=== PATIENT | female | born 1955 | race Caucasian/White ===

== ENCOUNTER 2017-12-16 12:19 | Day surgery (SDC) | payer OTHER ==
[~2017-12-16] VITALS: Ht 167.6 cm; Wt 105.7 kg
[~2017-12-16 12:19] MED LIST: ABILIFY5 MG; ASPIRIN EC325 MG PO; CARBAMAZEPINE200 MG PO; DILANTIN100 MG PO; FLUOXETINE HCL20 MG PO; GABAPENTIN300 MG PO; LEVETIRACETAM500 MG PO; LOSARTAN POTAS100 MG PO; LYRICA150 MG PO; MELOXICAM15 MG PO; NORCO 5-325 TA1 EACH PO; OMEPRAZOLE20 MG PO; ONDANSETRON ODT4 MG SL; OSELTAMIVIR PHO75 MG PO; PHENYTOIN SODI100 MG PO; TIZANIDINE HCL2 M1 PO; VENTOLIN HFA18 GM INH
[2017-12-16] MEDS ORDERED: L-METHYLFOLATE7.5 M1 PO (12:49)
[2017-12-16] MEDS ORDERED: L-METHYL-B6-B11 EACH PO (12:52)
--- NOTE | 2017-12-16 14:15 | NUR ---
12/16/17 Josseline5 April Preston 1407 PT ARRIVED TO PACU ON 3L RESP EVEN AND UNLABORED. PT DENIES NAUSEA AND PAIN. PT ENCOURAGED TO PASS GAS/AIR. PT BACK TO SLEEP.
--- NOTE | 2017-12-21 13:08 | OR ---
[facility] [address], [place] [address] Signed DATE OF OPERATION: 12/16/2017 SURGEON: Magdalena Akins MD PREOPERATIVE DIAGNOSES: 1. History of Clostridium difficile related diarrhea. 2. Heme-positive stools. 3. Multiple polyps (seven). PROCEDURE: 1. Total colonoscopy to cecum with cold morcellation polypectomy x3, hot and cold snare polypectomy x4. 2. Random biopsy of cecum and rectum. ANESTHESIA: Intravenous sedation fentanyl 100 mcg, Versed 8 mg. INDICATION: This 62-year-old white woman is a patient of JAE Hernandez, and has history of C difficile related diarrhea, which was rather protracted. She appears to be resolved from that. She has been noted to have occult blood on stool testing. She was admitted to undergo colonoscopy on that basis. She understands the risks of bleeding, infection, and perforation and wished to proceed. FINDINGS: The prep was excellent. Complete colonoscopy was undertaken to the cecum without question. Biopsies were taken of the cecum and rectum to assess for occult colitis, though there was no evidence of colitis at this time. She had seven polyps in total. A small flat polyp in the ileocecal valve was another in the cecum itself. A more substantial polyp was of the hepatic flexure and another similarly on the splenic flexure, as well as the transverse colon. A polyp was noted at 40 cm and one in the rectum as well. They were all excised with combination of techniques. PROCEDURE: The patient was brought to the endoscopy suite and placed in lateral decubitus position, and given intravenous sedation to the point of slurred speech and nystagmus. Full cardiopulmonary monitoring was maintained. Digital rectal examination was normal. An Olympus video colonoscope was passed in the rectum and manipulated throughout the colon ultimately intubating the cecum itself. Irrigation was undertaken as needed. Electronically Signed By: MAGDALENA AKINS MD 12/21/17 1308 PATIENT NAME: CORINNA HOGAN OPERATIVE REPORT DATE OF : 57 REPORT #: [id number] PHYSICIAN: MAGDALENA AKINS MD PCP: NINA NICHOLAS PA-C REPORT IS CONFIDENTIAL AND NOT TO BE RELEASED WITHOUT AUTHORIZATION [facility] [address], [place] [address] Signed Random biopsies were taken of the colonic mucosa of the cecum to assess for occult colitis. Upon withdrawal, there appeared to be a flat small polyp of the ileocecal valve. This was excised with cold morcellation technique. Similar polyp was noted in the cecum across the way. It too was excised with cold morcellation technique. The scope was withdrawn visualizing a small sessile polyp at the hepatic flexure. This was excised with cold snare polypectomy technique and passed for pathology. Another similar such polyp was similarly excised in the right transverse colon. Further withdrawal of scope showed another polyp in the splenic flexure area of the transverse colon, which was excised with snare polypectomy technique. Another in the mid descending colon. Further withdrawal of scope to the rectum showed a small nodular polyp of the rectum, which was excised with cold morcellation technique. Retroflexed view was undertaken showing no other abnormality. Colonic mucosa was biopsied in the rectum to assess for occult colitis. The scope was removed, and the patient taken to recovery room in good condition. CONCLUDING DIAGNOSES: 1. Multiple polyps. 2. No evidence of ongoing colitis. PLAN: Given the number of polyps, would recommend repeat colonoscopy in one year. If the polyps proved to be hyperplastic dominantly, then consideration for three years or so. MD MARIEL Meade/NARAL /[id number] cc: Nina Nicholas PA-C Copies: NINA NICHOLAS PA-C ~ Electronically Signed By: MAGDALENA AKINS MD 12/21/17 1308 PATIENT NAME: CORINNA HOGAN OPERATIVE REPORT DATE OF : 57 REPORT #: [id number] PHYSICIAN: MAGDALENA AKINS MD PCP: NINA NICHOLAS PA-C REPORT IS CONFIDENTIAL AND NOT TO BE RELEASED WITHOUT AUTHORIZATION
== END 2017-12-16 14:57 | disposition home or self-care (01) ==
LOC: DS 12:19 → OPS 12:19 → DS 13:00 → OPS 14:57
PROVIDERS: Surgery
PROC: 0DBL8ZZ Excision of Transverse Colon, Via Natural or Artificial Opening Endoscopic (ICD-10-PCS; 2017-12-16)
PROC: 0DBK8ZZ Excision of Ascending Colon, Via Natural or Artificial Opening Endoscopic (ICD-10-PCS; 2017-12-16)
PROC: 0DBE8ZZ Excision of Large Intestine, Via Natural or Artificial Opening Endoscopic (ICD-10-PCS; 2017-12-16)
PROC: 0DBP8ZZ Excision of Rectum, Via Natural or Artificial Opening Endoscopic (ICD-10-PCS; 2017-12-16)
PROC: 0DBC8ZZ Excision of Ileocecal Valve, Via Natural or Artificial Opening Endoscopic (ICD-10-PCS; 2017-12-16)
PROC: 0DBH8ZZ Excision of Cecum, Via Natural or Artificial Opening Endoscopic (ICD-10-PCS; principal; 2017-12-16 13:00)
DX: D12.0 Benign neoplasm of cecum (principal); D12.3 Benign neoplasm of transverse colon; F32.9 Major depressive disorder, single episode, unspecified; I10 Essential (primary) hypertension; G40.909 Epilepsy, unspecified, not intractable, without status epilepticus; G47.30 Sleep apnea, unspecified; E66.01 Morbid (severe) obesity due to excess calories; Z99.89 Dependence on other enabling machines and devices; Z88.8 Allergy status to other drugs, medicaments and biological substances; Z68.37 Body mass index [BMI] 37.0-37.9, adult
CPT/HCPCS: 99153; G0500; J2250; J3010; J7120

== ENCOUNTER 2021-05-10 09:29 | Emergency (ER) | payer MEDICARE ==
[~2021-05-10] VITALS: Ht 167.6 cm; Wt 105.7 kg
[~2021-05-10 09:29] MED LIST changes: +L-METHYL-B6-B11 EACH PO; +L-METHYLFOLATE7.5 M1 PO
[2021-05-10] MEDS ORDERED: VENTOLIN HFA18 GM INH (09:55)
[2021-05-10] MEDS ORDERED: ONDANSETRON ODT8 MG PO (13:19)
== END 2021-05-10 13:40 | disposition home or self-care (01) ==
LOC: ED 09:29
DX: B34.9 Viral infection, unspecified (principal); N28.89 Other specified disorders of kidney and ureter; K21.9 Gastro-esophageal reflux disease without esophagitis; Z88.8 Allergy status to other drugs, medicaments and biological substances; Z88.5 Allergy status to narcotic agent; Z79.899 Other long term (current) drug therapy; Z20.822 Contact with and (suspected) exposure to COVID-19
CPT/HCPCS: 36415; 74177; 80048; 81001; 85025; 96375; 99284-25; A9270; C9803; J1885; J2405; J7030; Q9967; U0003

== ENCOUNTER 2021-07-12 17:39 | Inpatient (IN) | payer MEDICARE ==
[~2021-07-12] VITALS: Ht 167.6 cm; Wt 102.2 kg
[~2021-07-12 17:39] MED LIST changes: +ONDANSETRON ODT8 MG PO
[2021-07-12] MEDS ORDERED: OXYCODONE HCL5 MG PO (18:14)
[2021-07-12] MEDS ORDERED: PREGABALIN150 MG PO (18:15)
--- NOTE | 2021-07-13 04:03 | NUR ---
Patient sleeping well. States she has sleep apnea, was periodically dropping oxygen saturations. Placed on 2L NC.
--- NOTE | 2021-07-13 07:30 | NUR ---
REPORT RECIEVED, CARE OF PT ASSUMED AT THIS TIME
--- NOTE | 2021-07-13 08:10 | NUR ---
IN ROOM FOR MEDICATION ADMINISTRATION. PT COMPLAINS OF 3/10 ABDOMINAL PAIN. GIVEN PRN TYLENOL. PT ALSO INCONTINENT OF LARGE AMOUNT OF URINE. INCONTINENT AND GENA CARE PROVIDED. PT HAS IV FLUIDS INFUSING. PLAN OF CARE FOR DAY ESTABLISHED. UP IN CHAIR EATING BREAKFAST. PLAN OF CARE FOR DAY ESTABLISHED. CALL LIGHT WITHIN REACH. WILL CONTINUE TO MONITOR.
--- NOTE | 2021-07-13 09:07 | NUR ---
THIS SN AND ADDITIONAL RN AIDED PT WITH BED BATH. PT TOLERATED WELL, PT HAD PERIODS OF WEAKNESS SO BREAKS WERE TAKEN TO ALLOW PT TO REST. PT IS NOW RESTING IN FRESHLY CHANGED BED WITH CALL LIGHT IN REACH. PT ATE 85% BREAKFAST. WILL CONTINUE TO MONITOR.
--- NOTE | 2021-07-13 09:45 | NUR ---
PT SLEEPING IN BED. NOW AT BEDSIDE. LET PT KNOW WE WILL START SCHEDULED BEDSIDE COMMODE TO AID IN INCONTINENCE. CALL LIGHT WITHIN REACH, WILL CONTINUE TO MONITOR.
--- NOTE | 2021-07-13 10:18 | NUR ---
ANSWERED PT CALL LIGHT. PT IS EXPERIENCING 7/8 PAIN OUT OF 10 IN SIDES OF LOWER ABDOMEN. PT STATES IT IS A SHARP PAIN THAT IS NOT BEING RELIEVED WITH REPOSITIONING OR PASSING OF GAS. ADMINISTERED PAIN MEDICATION HYDROCODONE PRN (SEE EMAR). PT STATED SHE WOULD LIKE SOMETHIND TO AID WITH BOWEL MOVEMENT BECAUSE SHE HAS NOT HAD ONE SINCE SATURDAY. SPOKE WITH DR ACEVES AND RECEIVED VERBAL ORDERS FOR LACTULOSE AND DULCOLAX. UPDATED PT ON CARE PLAN. WILL ADMINISTER AND CONTINUE TO MONITOR.
--- NOTE | 2021-07-13 10:54 | NUR ---
ANSWERED PT CALL LIGHT TO PT FEELING LIKE SHE HAD EPISODE OF INCONTINENCE. PER SARAH PAD AND FULL DEPENDS, RECORDED 1 EPISODE OF INCONTINENCE. SN AND RN ASSISTED PT TO BEDSIDE COMMODE. PT TOLERATED WELL WITH SLIGHT SHORTNESS OF BREATH, VITALS REMAINED WNL. PLACED NEW DEPENDS ON PT, NEW SARAH PAD ON BED, AND PERFORMED PERINEAL CLEANING FOR PT. PT IS NOW RESTING IN BED. LET HER KNOW WE WILL TRY HOURLY TO VOID ON BEDSIDE COMMODE, PT AGREED TO PLAN AND WILL TRY TO VOID AT 1200. PT IS NOW RESTING IN BED, AT BEDSIDE. CALL LIGHT WTIHIN REACH, WILL CONTINUE TO MONITOR.
--- NOTE | 2021-07-13 12:14 | NUR ---
DR ACEVES IN ROOM TO ASSESS PATIENT. PLAN OF CARE ESTABLISHED FOR THE AFTERNOON. ALL PATIENT AND FAMILY QUESTIONS ANSWERED. CALL LIGHT WITHIN REACH. WILL CONTINUE TO MONITOR.
--- NOTE | 2021-07-13 12:28 | NUR ---
IN ROOM PERFORMING AFTERNOON ASSESSMENT. PT PAIN HAS DECREASED IN ABDOMEN REGION TO A 4/10. PT CONSUMED 50% OF LUNCH AND CONTINUES TO DRINK WATER AND SPRITE. PT CONTINUOUS TO BE INCONTINENT, PT AGREED TO HOURLY BEDSIDE COMMODE ATTEMPTS. PT VITALS REMAIN WNL. PT ON RA BUT O2 REACHES HIGH 80'S WHILE PT SLEEPS. PT IS CONTINUING TO REST, WILL RETURN THIS EVENING WITH CPAP MACHINE. CALL LIGHT WITHIN REACH, WILL CONTINUE TO MONITOR.
--- NOTE | 2021-07-13 12:48 | NUR ---
PT O2 SATS SLIGHTLY DROPPING TO HIGH 80'S WHILE SLEEPING. PLACED ON 1 1/2 LITERS O2 VIA NC. CALL LIGHT WITHIN REACH, WILL CONTINUE TO MONITOR.
[2021-07-13] MEDS ORDERED: GLUCOSAMINE CH1 EAC1 PO (15:32)
[2021-07-13] MEDS ORDERED: B COMPLEX1 EACH PO (15:32)
[2021-07-13] MEDS ORDERED: VITAMIN D325 MCG PO (15:32)
[2021-07-13] MEDS ORDERED: MELATONIN10 M2 PO (15:33)
--- NOTE | 2021-07-13 15:33 | NUR ---
MED REC COMPLETE
--- NOTE | 2021-07-13 16:43 | NUR ---
ASSISTED PT TO BEDSIDE COMMODE. PT DEPENDS DRY AND WAS ABLE TO VOID 275 INTO BEDSIDE COMMODE. STILL WEAK WHILE AMBULATING, STANDBY ASSIST REQUIRED. PT PAIN 4/10 INTERMITTENT IN ABDOMEN. PERFORMED EVENING ASSESSMENT. HR IS IN 70'S WITH BP IN 120'S SYSTOLIC. PT ON RA WHILE AWAKE, 02 SATS IN 90'S. WHILE PT IS ASLEEP SATS DROP TO UPPER 80'S, NC ON 1 1/2 L O2 IS AT BEDSIDE. IS BRINGING CPAP MACHINE FROM HOME THIS EVENING. PT GIVEN BENEDRYL IV PRIOR TO VANCO IV ADMINISTRATION. VANCO NOW RUNNING IN RT AC AT 125 ML/HR (SEE EMAR). IV IN RIGHT HAND IS PATENT BUT PAINFUL TO PT WHEN FLUSHED. PT IS NOW RESTING IN BED, CALL LIGHT WITHIN REACH. WILL CONTINUE TO MONITOR.
--- NOTE | 2021-07-13 17:16 | NUR ---
PT CURRENTLY EATING DINNER. VANCO STILL INFUSING. PT STATED SHE FELT SLIGHTLY LOOPY FROM BENEDRYL BUT A&O AND STATES THAT HAS PASSED. PROVIDED WARM BLANKET FOR PT, LAST TEMP WAS 98.1. PT RESTING IN BED, CALL LIGHT WITHIN REACH, WILL CONTINUE TO MONITOR.
--- NOTE | 2021-07-13 17:46 | NUR ---
ASSISTED PT TO BEDSIDE COMMODE POST DINNER. PT HAD EPISODE OF INCONTINENCE IN DEPENDS AND 175 ML IN COMMODE. VANCO STILL INFUSING IN RT AC @ 125 ML/HR, PT IS STILL TOLERATING WELL. PT NOW BACK IN BED AND RESTING WATCHING TV. CALL LIGHT WITHIN REACH, WILL CONTINUE TO MONITOR.
--- NOTE | 2021-07-13 18:29 | NUR ---
MAGDALENA HAS ARRIVED AND IS NOW AT PT'S BEDSIDE. HE BROUGHT PT'S CPAP MACHINE. PT FELT BM COMING AND ASSISTED PT TO AMBULATE TO BATHROOM. PT HAD A MEDIUM BM THAT WAS BROWN AND LOOSE. PT GAIT IS STRONGER AND STEADIER REQUIRING MINIMAL ASSISTANCE. PT IS NOW BACK IN BED WITH CALL LIGHT IN REACH. WILL CONTINUE TO MONITOR.
--- NOTE | 2021-07-13 18:43 | NUR ---
ANSWERED CALL LIGHT TO PT FEELING THE ONSET OF ANOTHER BM. ASSISTED PT TO BATHROOM WHERE SHE HAD A MEDIUM, LOOSE, AND BROWN STOOL. PT STATES SHE IS FEELING STRONGER AND LESS DIZZY WITH AMBULATION. PT STRENGTH AND STEADINESS IN GAIT APPEARS TO BE IMPROVING, IS NOT DEPENDENT ON ASSISTANCE. PT IS NOW RESTING BACK IN BED WITH AT BEDSIDE. CALL LIGHT WITHIN REACH, WILL CONTINUE TO MONITOR.
--- NOTE | 2021-07-13 20:15 | NUR ---
PATIENT UP TO THE BATHROOM. 1PA; PATIENT FEELS UNSTEADY BUT APPEARS STABLE. PATIENT VOIDED AND HAD SMALL AMOUNT OF LIQUID STOOL. PATIENT REPORTS IMPROVED PAIN CONTROL AND DENIED ANY CONCERNS. FEELS BETTER AFTER SEVERAL BMs. PATIENT RETURNED TO BED. TOLERATING ROOM AIR. VS STABLE. ORAL TEMP 99.1 F. LUNGS CLEAR. ABD SLIGHTLY DISTENDED AND BOWEL SOUNDS ACTIVE. MILD TENDERNESS ABOUT INCISION SITES. AREAS RED AND BRUISED. IV SITE WNL; IV ABX INFUSING PER ORDER. PATIENT DENIED FURTHER NEEDS. CALL LIGHT IN REACH.
--- NOTE | 2021-07-13 22:00 | NUR ---
PATIENT READY FOR BED. ASSISTED WITH PM CARES. SCHEDULED MEDS PROVIDED. PATIENT'S HOME CPAP AT BEDSIDE TO USE. FRESH ICE WATER PROVIDED. PATIENT SL AT THIS TIME. CALL LIGHT IN REACH.
--- NOTE | 2021-07-14 00:05 | NUR ---
PATIENT APPEARS TO BE SLEEPING SOUNDLY. HOME CPAP IN PLACE, O2 SAT 92%.
--- NOTE | 2021-07-14 01:48 | NUR ---
PATIENT UP TO THE BATHROOM TO VOID. APPEARS MORE STEADY ON HER FEET. NO INCONTINENCE OR STOOL. PATIENT DENIES ANY CONCERNS. ORAL TEMP CONTINUES TO BE 99.1 F. PATIENT DOES NOT FEEL FEVERISH. VS STABLE. PATIENT TOLERATES ROOM AIR. ON HOME CPAP FOR SLEEP. CALL LIGHT IN REACH.
--- NOTE | 2021-07-14 06:00 | NUR ---
PATIENT UP TO THE BATHROOM TO VOID. STEADY ON FEET. SUPERVISON ONLY. PATIENT TOLERATING ROOM AIR. VS STABLE. REPORTS MILD PAIN, 3/10. NO PRN MEDS REQUESTED. LAP SITES HEALING, NO INCREASED IN INFLAMATION. IV SITE IN RIGHT HAND DC DUE TO SEVERE PAIN WITH FLUSHING. SECONDARY SITE AVAILABLE.
--- NOTE | 2021-07-14 07:45 | NUR ---
PATIENT SHIFT REPORT RECIEVED FROM CAMPAIGN ASSOCIATE RN. PATIENT RESTING IN BED AT THIS TIME. PATIENT HAS BEEN GETTING UP AND USING THE BATHROOM. NO FEVER OVER NIGHT PER REPORT. PATIENT CALLS APPROPRIATELY. WILL CONTINUE TO CLOSELY MONITOR.
--- NOTE | 2021-07-14 08:01 | NUR ---
VITALS CHARTED. WASHCLOTH PROVIDED FOR HANDS AND FACE. PATIENT SITTING UP FOR BREAKFAST, NO OTHER NEEDS AT THIS TIME
--- NOTE | 2021-07-14 09:15 | NUR ---
PATIENTS SHIFT ASSESSMENT COMPLETED. PATIENT SITTING UP IN BED RESTING. PATIENT REPORTS "I FEEL MUCH BETTER TODAY". PATIENTS BREATH SOUNDS CLEAR. BOWEL TONES ACTIVE. PATIENTS UMBILLICAL INCISION IS LESS RED TODAY. MILD TENDERENESS IN BILATERLA LOWER QUAD OF ABD. PATIENT STATES THIS IS TOLERABLE. PATIENT HAS BEEN GETTING UP TO USE THE BATHROOM WITH STAND-BY ASSIST AND TOLERATES WELL. WILL CONTINUE TO CLOSELY MONITOR.
[2021-07-14] MEDS ORDERED: BISACODYL5 MG PO (10:19)
[2021-07-14] MEDS ORDERED: CULTURELLE1 EAC1 PO (10:20)
[2021-07-14] MEDS ORDERED: DOXYCYCLINE HY100 MG PO (10:20)
--- NOTE | 2021-07-14 10:45 | NUR ---
ACEVES IN TO SEE PATIENT. PER MD PATIENT MAY DISCHARGE HOME. RECOMMENED TO FOLLOW-UP WITH SURGEON AND PRIMARY CARE PROVIDER. PATIENT AND HER ARE AGREEABLE TO PLAN OF CARE. NO FURTHER QUESTIONS AT THIS TIME.
--- NOTE | 2021-07-14 12:00 | NUR ---
PATIENT DISCHARGE INSTRUCTIONS GIVEN. PATIENT AGREEBALE TO PLAN OF CARE. PATIENT SPOKE WITH STAFF FROM HER PRIMARY CARE PROVIDERS OFFICE AND UPDATED ON PLAN OF CARE AND RECENT HOSPITALIZATION. SONY RN IN ASSIST PATIENT TO GET DRESSED AND TAKE OUT IV SITE. PATIENTS IS COMING TO PICK PATIENT UP.
--- NOTE | 2021-07-14 12:15 | NUR ---
PATIENT READY FOR DISCHARGE. SONY BAUER ASSISTED PATIENT TO WHEELCHAIR. ALL BELONGINGS SENT WITH PATIENT. NO FURTHER QUESTIONS AT THIS TIME.
--- NOTE | 2021-07-14 12:15 | NUR ---
PATIENT STATED SHE CAN CONSUME DAIRY PRODUCTS, BUT SHE JUST CANNOT OVER DO IT. SHE SAID SHE LIKES MILK, YOGURT, AND SOME CHEESE BUT CANNOT EAT TOO MUCH. SHE IS HOPING TO GO HOME TODAY. WILL CONTINUE TO MONITOR.
--- NOTE | 2021-07-16 17:07 | EKG ---
[facility] [address] [facility] [place] [address] Signed Normal sinus rhythm Normal ECG When compared with ECG of 29-JUL-2017 09:47, No significant change was found Confirmed by ALYSHA ACEVES MD ([id number]) on 07/16/2021 5:07:07 PM Electronically Signed By: ALYSHA ACEVES MD 07/16/21 1707 PATIENT NAME: CORINNA HOGAN HUMA Electrocardiogram DATE OF : 57 PHYSICIAN: ALYSHA ACEVES MD REPORT #: [id number] REPORT IS CONFIDENTIAL AND NOT TO BE RELEASED WITHOUT AUTHORIZATION
== END 2021-07-14 12:15 | disposition home or self-care (01) | DRG 862 ==
LOC: ED 17:39 → CCU 22:13
PROVIDERS: ADMIT Internal Medicine; ATTEND Internal Medicine
DX: T81.40XA Infection following a procedure, unspecified, initial encounter (principal); A41.9 Sepsis, unspecified organism; N17.9 Acute kidney failure, unspecified; K21.9 Gastro-esophageal reflux disease without esophagitis; Y83.9 Surgical procedure, unspecified as the cause of abnormal reaction of the patient, or of later complication, without mention of misadventure at the time of the procedure; Z20.822 Contact with and (suspected) exposure to COVID-19; G40.909 Epilepsy, unspecified, not intractable, without status epilepticus; G62.9 Polyneuropathy, unspecified; Z88.5 Allergy status to narcotic agent; Z88.8 Allergy status to other drugs, medicaments and biological substances; Z90.5 Acquired absence of kidney; Z90.89 Acquired absence of other organs; Z79.899 Other long term (current) drug therapy
CPT/HCPCS: 36415; 51701; 71260; 74177; 80048; 80053; 81001; 83605; 85025; 87040; 93005; 93010; 99285-25; A9270; J0690; J0692; J1200; J1650; J1956; J2543; J3370; J7030; J7060; J7121; Q9967; U0003

== ENCOUNTER 2022-05-31 18:09 | Emergency (ER) | payer MEDICARE, OTHER ==
[~2022-05-31] VITALS: Ht 167.6 cm; Wt 105.0 kg
[~2022-05-31 18:09] MED LIST changes: +B COMPLEX1 EACH PO; +BISACODYL5 MG PO; +CULTURELLE1 EAC1 PO; +DOXYCYCLINE HY100 MG PO; +GLUCOSAMINE CH1 EAC1 PO; +MELATONIN10 M2 PO; +OXYCODONE HCL5 MG PO; +PREGABALIN150 MG PO; +VITAMIN D325 MCG PO
[2022-05-31] MEDS ORDERED: AZITHROMYCIN250 MG PO (19:30)
[2022-05-31] MEDS ORDERED: OXYBUTYNIN CHLO10 MG PO (19:30)
[2022-05-31] MEDS ORDERED: BENZONATATE100 MG PO (19:31)
== END 2022-05-31 22:36 | disposition home or self-care (01) ==
LOC: ED 18:09
DX: J40 Bronchitis, not specified as acute or chronic (principal); Z20.822 Contact with and (suspected) exposure to COVID-19; K21.9 Gastro-esophageal reflux disease without esophagitis; Z88.8 Allergy status to other drugs, medicaments and biological substances; Z88.5 Allergy status to narcotic agent; Z79.899 Other long term (current) drug therapy
CPT/HCPCS: 36415; 71045; 71260; 80048; 85025; 85379; 87502; 94640; 94664; 99285-25; C9803; Q9967; U0003

== ENCOUNTER 2023-11-22 06:25 | Day surgery (SDC) | payer MEDICARE, OTHER ==
[2023-11-13 13:48] VITALS: BP 127/72
[~2023-11-22] VITALS: Ht 167.6 cm; Wt 107.7 kg
[~2023-11-22 06:25] MED LIST changes: +AZITHROMYCIN250 MG PO; +BENZONATATE100 MG PO; +BETAMETHASONE V15 GM TOP; +HYDROCODON-ACE1 EA10 PO; +LACTATED RINGER'S 1,000 ML IV SCH; +LYRICA300 MG PO; +METFORMIN HCL500 M1 PO; +MYRBETRIQ50 MG PO; +OXYBUTYNIN CHLO10 MG PO; +PAXLOVID 300-11 EAC1 PO; +VITAMIN D31250 MCG PO; -VITAMIN D325 MCG PO
[2023-11-22] MEDS ORDERED: KETOROLAC TROMETHAMINE 30 MG/ML VIAL ONE ×2 (06:40→09:13)
[2023-11-22 06:48] VITALS: BP 140/58
[2023-11-22] MEDS ORDERED: TRANEXAMIC ACID 2,000 MG in SODIUM CHLORIDE 0.9% 100 ML IV SCH (07:00)
[2023-11-22] MEDS ORDERED: IBLOOD GLUCOSE TEST STRIP 1 EA TEST VI PRN ×2 (07:00→09:30)
[2023-11-22] MEDS ORDERED: LIDOCAINE HCL 1% 5 ML SDV INJ ONE (07:00)
[2023-11-22] MEDS ORDERED: CEFAZOLIN SODIUM 2 GM/20 ML SYR IV SCH (07:00)
[2023-11-22] MEDS ORDERED: OMEPRAZOLE20 MG PO (07:18)
[2023-11-22] MEDS ORDERED: fentaNYL citrate 100 MCG/2 ML VIAL ONE (07:57)
[2023-11-22] MEDS ORDERED: ondansetron HCL 4 MG/2 ML VIAL ONE (07:57)
[2023-11-22] MEDS ORDERED: propofoL 200 MG/20 ML VIAL ONE (07:57)
[2023-11-22] MEDS ORDERED: LIDOCAINE HCL 2% 5 ML SDV ONE (07:57)
[2023-11-22] MEDS ORDERED: DEXAMETHASONE SOD PHOS 4 MG/ML VIAL ONE (07:57)
[2023-11-22] MEDS ORDERED: SUCCINYLCHOLINE IN 0.9% NACL 200 MG/10 ML SYRINGE ONE (08:53)
[2023-11-22] MEDS ORDERED: ROCURONIUM BROMIDE 50 MG/5 ML SYR ONE (08:53)
[2023-11-22] MEDS ORDERED: ACETAMINOPHEN 1,000 MG/100 ML VIAL ONE (09:03)
[2023-11-22] MEDS ORDERED: SUGAMMADEX SODIUM 200 MG/2 ML ML ONE ×2 (09:18→09:52)
[2023-11-22] MEDS ORDERED: HYDROCODONE/ACETA 5/325 TAB PO PRN (09:30)
[2023-11-22] MEDS ORDERED: ondansetron HCL 4 MG/2 ML VIAL IV PRN (09:30)
[2023-11-22] MEDS ORDERED: NALOXONE HCL 0.4 MG SYR IV PRN (09:30)
[2023-11-22] MEDS ORDERED: KETOROLAC TROMETHAMINE 15 MG/ML VIAL IV PRN (09:30)
[2023-11-22] MEDS ORDERED: fentaNYL citrate 50 MCG/ML SDV IV PRN (09:30)
[2023-11-22] MEDS ORDERED: droPERidol 5 MG/2 ML VIAL IV PRN (09:30)
[2023-11-22] MEDS ORDERED: HYDROCODON-ACE1 EA10 PO (09:35)
[2023-11-22] MEDS ORDERED: CELECOXIB200 MG PO (09:35)
--- NOTE | 2023-11-22 09:56 | NUR ---
11/22/23 0956 Fowler,Renate Sheikh 0930: PATIENT ARRIVED TO PACU ON ROOM AIR. DROWSY, BUT ANSWERING QUESTIONS APPROPRIATELY. C/O NAUSEA. 0932: MEDICATED FOR NAUSEA WITH ZOFRAN IV. 0940: C/O PAIN 5/10 IN LEFT KNEE. C/O SORE THROAT. MEDICATED FOR PAIN WITH FENTANYL. 0945: C/O "TROUBLE BREATHING". O2 SAT WNL. INSTRUCTED PATIENT TO TAKE SLOW DEEP BREATHS. PATIENT STATES NO DIFFERENCE. JEWELER APPRENTICE NOTIFIED.
[2023-11-22] MEDS ORDERED: ALBUTEROL/IPRATROPIUM 3 ML NEB INH ONE (10:15)
[2023-11-22 10:40] VITALS: BP 120/56
--- NOTE | 2023-11-22 10:40 | NUR ---
PT ARRIVED BACK TO FROM PACU AT APPROX 1040. PT AAOX3 AND ABLE TO MAKE HER NEEDS KNOWN. PT RETURNED ON RA WITH SATS IN THE UPPER 90'S. HOB ELEVATED APPROX 30 DEGREES, PT SIPPING ON ICE WATER. PT REPORTS PAIN 2/10 IN L KNEE. DRESSING TO SURGICAL SITES CDI. KNEE ELEVATED AT HEART LEVEL WITH ICE PACK IN PLACE. CMS INTACT. PT HAS NEUROPATHY IN BLE'S AT BASELINE. PT DENIES NAUSEA WHEN ASKED. VS TAKEN. IV SITE ASSESSED, PATENT WITH LR INFUSING. PT PROVIDED WITH CHOCOLATE PUDDING AND CRACKERS. CALL LIGHT WITHIN PT REACH. BED IN LOW POSITION WITH WHEELS LOCKED. BILAT SIDE RAILS UP IN PLACE FOR SAFETY. PTS LOCATED IN WAITING AREA AND BROUGHT TO PTS ROOM AT PT REQUEST. NOW AT PTS BEDSIDE.
[2023-11-22 11:40] VITALS: BP 129/64
--- NOTE | 2023-11-22 11:40 | NUR ---
INTO PTS ROOM FOR ROUTINE REASSESSMENT. PT DENIES NAUSEA WHEN ASKED AND REPORTS NO INCREASE IN PAIN SINCE LAST ASSESSMENT, CONT TO RATE PAIN AT 2/10. ICE REMAINS IN PLACE TO SURGICAL SITES AND L KNEE REMAINS ELEVATED AT HEART LEVEL. NOTED SMALL AMT OF SS DRAIANGE NOTED ON ABD PAD, DRSG REMAINS INTACT. PT HAS TOLERATED PO FLUIDS AND FOOD W/O ISSUES. IV SITE ASSESSED. SL'D AT THIS TIME. CALL LIGHT WITHIN PT REACH. BED IN LOW POSITION WITH WHEELS LOCKED. BILAT SIDERAILS UP IN PLACE. PT DENIES ANY FURTHER NEEDS OR QUESTIONS AT THIS TIME.
--- NOTE | 2023-11-22 12:14 | NUR ---
1200-PT ASSISTED TO EOB AND THEN TO STANDING POSITION WITH 1 RN ASSIST. PT USED FWW TO AMBULATE TO RR WITH RN SBA. PT ABLE TO VOID 400ML OF CLR, YELLOW URINE. PT AMBULATED BACK TO ROOM WITH FWW WITH RN SBA. PT SITTING ON EOB. PT REPORTS PAIN 5/10 POST AMBULATION. SURICAL SITES VISUALIZED POST AMBULATION WELL. NOTED NO INCREASED DRAINAGE ON DRSGS. DRSG REMAINS CDI. PT PROVIDED WITH HER PERSONAL BELONGINGS AND CALL LIGHT. PT DRESSING.
[2023-11-22 12:40] VITALS: BP 139/63
--- NOTE | 2023-11-22 12:57 | NUR ---
LE 1220-INTO PTS ROOM TO GIVE PRN PAIN MEDICATION FOR C/O PAIN 5/10 IN L KNEE POST AMBULATION. DISCHARGE INSTRUCTIONS REVIEWED WITH PT AND PT VERBALIZES UNDERSTANDING. ALL QUESTIONS ANSWERED. ICE PACK REFILLED. ICE WATER ALSO REFILLED. CALL LIGHT WITHIN REACH. BED IN LOW POSITION, WHEELS LOCKED. 1235-INTO PTS ROOM FOR ROUTINE REASSESSMENT AND PAIN MEDICATION F/U. PT REPORTS PAIN IMPROVED TO 2/10. VS TAKEN. IV SITE REASSESSED. SURGICAL DRSG VISUALIZED. NO ACUTE CHANGES FROM PREVIOUS ASSESSMENT. PTS RETURNED TO ROOM. INSTRUCTED TO PULL CAR AROUND FRONT FOR PT DISCHARGE. 1240-IV REMOVED FROM FROM PTS R HAND. TIP OBSERVED TO BE INTACT. PRESSURE DRSG APPLIED WITH GAUZE AND COBAN. ALL QUESTIONS ANSWERED. PT DENIES ANY FURTHER NEEDS. PT DENIES NAUSEA WHEN ASKED. PT REPORTS PAIN WELL MANAGED AT 2/10. 1245-PT DISCHARGED FROM DS TO PASSENGER SIDE OF HUSBANDS CAR. PT TOOK ALL PERSONAL BELONGINGS WITH HER. ALL QUESTIONS ANSWERED. PT DENIES ANY FURTHER NEEDS AT THIS TIME.
[2023-11-22] MEDS ORDERED: CELECOXIB 200 MG CAP PO SCH (17:00)
--- NOTE | 2023-11-26 17:06 | OR ---
[facility] [address] [place], [place] [address] Signed DATE OF OPERATION: 11/22/2023 SURGEON: Catrachita Mcmahon MD PREOPERATIVE DIAGNOSIS: Lateral meniscus tear, left knee. POSTOPERATIVE DIAGNOSIS: Lateral meniscus tear, left knee. PROCEDURE PERFORMED: Left knee arthroscopy with partial lateral meniscectomy. GEAR HOBBER SET UP OPERATOR: None. ANESTHESIA: General. TOURNIQUET TIME: None. BLOOD LOSS: Minimal. BRIEF HISTORY: Corinna is a 68-year-old female with pain and instability in her left knee. Risks, benefits, and alternatives of operative treatment were discussed with her and she elected to proceed. Once consent was obtained, she was taken to the operating room. After adequate anesthesia, she was placed on the operating room table. Her right leg was flexed, abducted and externally rotated on a well-padded leg wallace. The left was placed in a well-padded proximal thigh leg wallace with no tourniquet. The leg was then prepped and draped in a standard sterile fashion. The portal sites were injected with 0.25% Marcaine with epinephrine. The standard inferolateral and superolateral portals were made and the scope was introduced into the knee. ARTHROSCOPIC FINDINGS: Significant synovitis was noted throughout the knee. 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 Medial and lateral gutters were clear. ACL and PCL were intact. Lateral compartment showed a complex tear in the mid lateral portion all way Electronically Signed By: CATRACHITA MCMAHON MD 11/22/23 1236 Electronically Signed By: CATRACHITA MCMAHON MD 11/29/23 0744 PATIENT NAME: CORINNA HOGAN OPERATIVE REPORT DATE OF : 57 REPORT #: [id number] PHYSICIAN: CATRACHITA MCMAHON MD PCP: SHARITA MOORE PA-C REPORT IS CONFIDENTIAL AND NOT TO BE RELEASED WITHOUT AUTHORIZATION [facility] [address] [place], [place] [address] Signed around to the posterior corner. It was unstable. There was grade 4 chondromalacia to about 30% of the tibia and grade 3 chondromalacia to the femur. Medial compartment showed a frayed but intact medial meniscus. There was grade 2 chondromalacia both sides. DESCRIPTION OF OPERATION: Standard inferomedial portal was made and the probe was introduced. The diagnostic arthroscopy was undertaken as noted above. The straight and curved biters were used to trim the tear back to a stable rim. This was then smoothed using the shaver and all debris was evacuated. The scope was then withdrawn. Portals were closed with 3-0 nylon. The knee was injected with 60 mg of Toradol at the end of the case. The wounds were dressed with Adaptic, ABD and Zhang wrap. She tolerated the procedure well. All sponge, needle, and instrument counts were correct. Catrachita Mcmahon MD BA/NARAL /[id number] Copies: ~ Electronically Signed By: CATRACHITA MCMAHON MD 11/22/23 1236 Electronically Signed By: CATRACHITA MCMAHON MD 11/29/23 0744 PATIENT NAME: CORINNA HOGAN OPERATIVE REPORT DATE OF : 57 REPORT #: [id number] PHYSICIAN: CATRACHITA MCMAHON MD PCP: SHARITA MOORE PA-C REPORT IS CONFIDENTIAL AND NOT TO BE RELEASED WITHOUT AUTHORIZATION
== END 2023-11-22 12:45 | disposition home or self-care (01) ==
LOC: DS 06:25
PROVIDERS: ATTEND Specialist
PROC: 0SBD4ZZ Excision of Left Knee Joint, Percutaneous Endoscopic Approach (ICD-10-PCS; principal; 2023-11-22 07:55)
DX: S83.272A Complex tear of lateral meniscus, current injury, left knee, initial encounter (principal); M22.42 Chondromalacia patellae, left knee; K21.9 Gastro-esophageal reflux disease without esophagitis; Z88.1 Allergy status to other antibiotic agents; Z88.5 Allergy status to narcotic agent; Z91.048 Other nonmedicinal substance allergy status; Z79.899 Other long term (current) drug therapy; X58.XXXA Exposure to other specified factors, initial encounter
CPT/HCPCS: 01400; J0131; J0330; J0690; J1100; J1885; J2001; J2405; J2704; J3010; J3490; J7121

== ENCOUNTER 2023-12-14 23:50 | Emergency (ER) | payer MEDICARE, OTHER ==
[~2023-12-14] VITALS: Ht 167.6 cm; Wt 105.0 kg
[~2023-12-14 23:50] MED LIST changes: +CELECOXIB200 MG PO; -LACTATED RINGER'S 1,000 ML IV SCH; +PRILOSEC OTC20 MG PO
[2023-12-15] MEDS ORDERED: HYDROCODONE BIT/ACETAMINOPHEN 5/325 MG 1 TAB HOME.PACK PO ONE (00:30)
[2023-12-15 00:49] VITALS: BP 142/79
[2023-12-19] MEDS ORDERED: OXYBUTYNIN CHLO15 MG PO (10:45)
[2023-12-19] MEDS ORDERED: VITAMIN D21250 MCG PO (10:46)
[2023-12-20] MEDS ORDERED: HYDROCODON-ACE1 EA11 PO (11:03)
[2023-12-21] MEDS ORDERED: HYDROCODON-ACE1 EA10 PO (09:36)
[2023-12-21] MEDS ORDERED: BETAMETHASONE V15 GM TOP (09:42)
[2023-12-21] MEDS ORDERED: ANTIFUNGAL113 GM TOP (09:42)
[2023-12-22] MEDS ORDERED: HYDROCODON-ACE1 EA11 PO (08:52)
[2023-12-22] MEDS ORDERED: PREGABALIN50 MG PO (08:52)
[2023-12-22] MEDS ORDERED: CELECOXIB200 MG PO (08:52)
== END 2023-12-15 00:49 | disposition home or self-care (01) ==
LOC: ED 23:50
DX: S82.435A Nondisplaced oblique fracture of shaft of left fibula, initial encounter for closed fracture (principal); X50.1XXA Overexertion from prolonged static or awkward postures, initial encounter; J45.909 Unspecified asthma, uncomplicated; G40.909 Epilepsy, unspecified, not intractable, without status epilepticus; E11.40 Type 2 diabetes mellitus with diabetic neuropathy, unspecified; K21.9 Gastro-esophageal reflux disease without esophagitis; Z88.1 Allergy status to other antibiotic agents; Z88.5 Allergy status to narcotic agent; Z88.8 Allergy status to other drugs, medicaments and biological substances; Z91.048 Other nonmedicinal substance allergy status; Z79.899 Other long term (current) drug therapy; Z79.84 Long term (current) use of oral hypoglycemic drugs
CPT/HCPCS: 73610; 99283; A9270

== ENCOUNTER 2024-06-05 18:03 | Emergency (ER) | payer MEDICARE, OTHER ==
[~2024-06-05] VITALS: Ht 167.6 cm; Wt 108.1 kg
[~2024-06-05 18:03] MED LIST changes: +ANTIFUNGAL113 GM TOP; +HYDROCODON-ACE1 EA11 PO; +OXYBUTYNIN CHLO15 MG PO; +PREGABALIN50 MG PO; +VITAMIN D21250 MCG PO
[2024-06-05] MEDS ORDERED: LACTULOSE 20 GM/30 ML CUP PO ONE (21:45)
[2024-06-05] MEDS ORDERED: MAGNESIUM CITRATE 300 ML BTL PO ONE (22:15)
[2024-06-05 22:30] VITALS: BP 166/82
== END 2024-06-05 22:30 | disposition home or self-care (01) ==
LOC: ED 18:03
DX: K59.00 Constipation, unspecified (principal); K21.9 Gastro-esophageal reflux disease without esophagitis; G40.909 Epilepsy, unspecified, not intractable, without status epilepticus; E11.40 Type 2 diabetes mellitus with diabetic neuropathy, unspecified; Z88.1 Allergy status to other antibiotic agents; Z88.5 Allergy status to narcotic agent; Z88.8 Allergy status to other drugs, medicaments and biological substances; Z91.048 Other nonmedicinal substance allergy status; Z79.84 Long term (current) use of oral hypoglycemic drugs; Z79.899 Other long term (current) drug therapy
CPT/HCPCS: 74018; 99283

== ENCOUNTER 2024-09-21 06:55 | Day surgery (SDC) | payer MEDICARE, OTHER ==
[2024-09-08 14:50] VITALS: BP 122/68
[~2024-09-21] VITALS: Ht 167.6 cm; Wt 104.5 kg
[2024-09-21] VITALS (8 sets, daily range): BP systolic 104–150; BP diastolic 40–69
[~2024-09-21 06:55] MED LIST changes: +LACTATED RINGER'S 1,000 ML IV SCH; +Ropivacaine HCl 20 MG/10 ML AMP ONE
[2024-09-21] MEDS ORDERED: PREGABALIN 100 MG CAP PO SCH (07:00)
[2024-09-21] MEDS ORDERED: CEFAZOLIN SODIUM 2 GM/20 ML SYR IV SCH ×2 (07:00→17:00)
[2024-09-21] MEDS ORDERED: PANTOPRAZOLE SODIUM 40 MG TABEC PO SCH (07:00)
[2024-09-21] MEDS ORDERED: INTRA-ARTICULAR ANALGESIC INJECTION XX SCH (07:00)
[2024-09-21] MEDS ORDERED: TRANEXAMIC ACID IN NACL,ISO-OS 1,000 MG/100 ML PIGGYBACK IV SCH ×2 (07:00→12:00)
[2024-09-21] MEDS ORDERED: GABAPENTIN 600 MG TAB PO SCH (07:00)
[2024-09-21] MEDS ORDERED: ROPIVACAINE IN 0.9% SOD CHL/PF 545 ML ELS.PMP.HR IRRIGATION SCH (07:00)
[2024-09-21] MEDS ORDERED: IBLOOD GLUCOSE TEST STRIP 1 EA TEST VI PRN (07:00)
[2024-09-21] MEDS ORDERED: OXYCODONE HCL 5 MG TAB PO SCH (07:00)
[2024-09-21] MEDS ORDERED: LIDOCAINE HCL 1% 5 ML SDV INJ ONE (07:00)
[2024-09-21] MEDS ORDERED: SODIUM CHLORIDE 0.9% 40 ML IV ONE (07:19)
[2024-09-21] MEDS ORDERED: MIDAZOLAM HCL 2 MG/2 ML VIAL ONE (07:19)
[2024-09-21] MEDS ORDERED: DEXAMETHASONE SOD PHOS 4 MG/ML VIAL ONE ×2 (07:19→08:46)
[2024-09-21] MEDS ORDERED: Ropivacaine HCl 0.5% 30 ML VIAL ONE (07:19)
[2024-09-21] MEDS ORDERED: MELATONINMAX10 MG PO (07:46)
--- NOTE | 2024-09-21 07:47 | NUR ---
PT NOT AVAILABLE FOR VISIT. PROVIDED PRAYER.
[2024-09-21] MEDS ORDERED: LIDOCAINE HCL 2% 5 ML SDV ONE (08:46)
[2024-09-21] MEDS ORDERED: ASPIRIN 325 MG TAB PO SCH (09:00)
[2024-09-21] MEDS ORDERED: OXYCODONE HCL 5 MG TAB PO PRN (09:00)
[2024-09-21] MEDS ORDERED: KETOROLAC TROMETHAMINE 30 MG/ML VIAL IV PRN (09:00)
--- NOTE | 2024-09-21 11:14 | NUR ---
09/21/24 1114 Janet Escobar 1052-PT ARRIVES TO PACU, VIA STRETCHER, PT DROWSY BUT JESSICA TO ANSWERE QUESTIONS, DENIES PAIN OR NAUSEA, VSS ON RA. CRYO CUFF APPLIED TO LT KNEE. 1100-PASTE MIXING SUPERVISOR AT BEDSIDE FOR POST OP LT KNEE X-RAY. 1105-PT SITTING UP IN BED SIPPING ON ORANGE JUICE, DENIES PAIN OR NAUSEA, VS REMAIN STABLE ON RA.
[2024-09-21] MEDS ORDERED: NALOXONE HCL 0.4 MG SYR IV PRN (11:15)
[2024-09-21] MEDS ORDERED: fentaNYL citrate 50 MCG/ML SDV IV PRN (11:15)
--- NOTE | 2024-09-21 11:35 | NUR ---
1120- PT ARRIVES FROM PACU. BEDSIDE REPORT RECIEVED FROM LIZETTE WHITTAKER. BED IS LOCKED IN THE LOWEST POSITION AND CALL LIGHT IN REACH. CRYOCUFF PLUGGED IN AND SCDS GOING. LR INFUSING. PT DENIES PAIN AND NAUSEA. SURGICAL SITE IS CDI. PT REQUESTING PUDDING AND WATER. DISCAHRGE CRITERIA DISCUSSED AND PT IS UNDERSTANDING. SPINAL IS AT L1. PT IS SITTING UP AND TALKING WITH HER WHO IS AT BEDSIDE.
--- NOTE | 2024-09-21 12:08 | NUR ---
1208- PT IS SITTING UP IN BED SIPPING ON COFFEE AND WATER AND WAS ABLE TO EAT PUDDING. PT DENIES PAIN AND NAUSEA. VITAL SIGNS OBTAINED. PT USING INCENTIVE SPIROMETER. SPINAL IS AT T1. LR INFUSING. CALL LIGHT IN REACH. PT IS ABLE TO MOVE LOWER EXTREMETIES, BUT DOES NOT FEEL THEM. WARM BLANKETS PROVIDED.
--- NOTE | 2024-09-21 14:05 | NUR ---
1320- UPON ENTERING THE ROOM THE PT REPORTS HAVING WET THE BED. CHANGE OF BED AND GOWN MADE. PT REPORTS THAT SHE FEELS BACK TO NORMAL IN REGUARDS TO HER SPINAL. PT IS ABLE TO PUT WEIGHT ON HER OPERATIVE LIMB ENOUGH TO TRANSFER TO A BEDSIDE COMMODE. PT IS SALINE LOCKED AT THIS TIME. 1340- PT IS ABLE TO VOID 275ML OF CLEAR YELLOW URINE. 1400- VITAL SIGNS OBTAINED. PT USING IS. BLANKETS PROVIDED. 1405- PT REPORTS 4/10 PAIN AND IS GIVEN PAIN MEDICATION, SEE EMAR. PT RESTING IN BED WITH AT BEDSIDE.
--- NOTE | 2024-09-21 14:49 | NUR ---
1440- PT IS WORKING WITH PHYSICAL THERAPY IN THE ROOM.
[2024-09-21] MEDS ORDERED: GABAPENTIN 300 MG CAP PO SCH (15:00)
[2024-09-21] MEDS ORDERED: ACETAMINOPHEN 500 MG TAB PO SCH (15:00)
--- NOTE | 2024-09-21 15:07 | NUR ---
1505- PT IS WITH PHYSICAL THERAPY AND THEY LEFT DAY SURGERY TO WORK IN THE PHYSICAL THERAPY GYM.
--- NOTE | 2024-09-21 15:41 | NUR ---
1535- PT RETURNS TO ROOM 6 IN DAY SURGERY FROM PHYSICAL THERAPY.
--- NOTE | 2024-09-21 15:42 | NUR ---
1410- PHYSICAL THERAPY CALLED DR. RAZA ABOUT PHYSICAL THERAPY SESSION. PT IS TO STAY TONIGHT AND REASSESS TOMORROW.
--- NOTE | 2024-09-21 16:01 | NUR ---
1600- PT IS LAYING IN HER BED. PT REPORTS 7-8/10 PAIN AFTER WORKING WITH PHYSICAL THERAPY. PT REPORTS A LITTLE NAUSEA THAT SHE BELIEVES IS DUE TO THE PAIN. PT IS AWARE OF PLAN. PT USING INCENTIVE SPIROMETER. SURGICAL SITE SHOWS A SMALL AMOUNT OF RED SHADOWING.
--- NOTE | 2024-09-21 16:39 | NUR ---
1639- BLOOD SUGAR 192 TAKEN PER PT REQUEST.
--- NOTE | 2024-09-21 17:19 | NUR ---
Pt arrived to room at 1710 hours, report received from SAGRARIO RN at 1713 hours. VSS. Pt able to transfer from rlutz to bed using front wheeled walker. Pt used physical therapy-taught techniques to move her surgical leg from the bed to the floor, then up on to the bed. Pt's at bedside.
[2024-09-21] MEDS ORDERED: HYDROCODON-ACE1 EA10 PO (17:23)
--- NOTE | 2024-09-21 17:29 | NUR ---
1713- PT TRANSFERED FROM DAY SURGERY TO MED SURG ROOM 122. BEDSIDE REPORTS GIVEN TO LIZETTE ANTHONY. PT IS ABLE TO TRANSFER FROM STRETCHER TO BED USING FWW. NO QUESTIONS OR CONCERNS. CARE TURNED OVER AT THIS TIME.
[2024-09-21] MEDS ORDERED: ALBUTEROL SULFATE 0.083% 3 ML VIAL INH PRN (17:45)
--- NOTE | 2024-09-21 19:40 | NUR ---
RECEIVED REPORT. PT RESTING IN BED, NO NEEDS OR CONCERNS AT THIS TIME. CALL LIGHT WITHIN REACH.
--- NOTE | 2024-09-21 19:56 | NUR ---
ASSISTED PATIENT UP TO THE BATHROOM TO VOID 300ML YELLOW URINE. PERSONAL FRONT WHEEL WALKER WAS USED. PATIENT RETURNED TO BED. PATIENT TOLERATED WELL. FOOT PUMPS, CPOX AND CRYO CUFF WERE ON. BED ADJUSTMENT ON KNEE LOCKED. PATIENT DENIES FURTHER NEEDS AT THIS TIME. PRESENT IN THE ROOM.
[2024-09-21] MEDS ORDERED: MICONAZOLE NITRATE 1 EA BTL TOP SCH (21:00)
[2024-09-21] MEDS ORDERED: SENNOSIDES 1 TAB PO SCH (21:00)
[2024-09-21] MEDS ORDERED: MELATONIN 3 MG TAB PO SCH (21:00)
[2024-09-21] MEDS ORDERED: levETIRAcetam 500 MG TAB PO SCH (21:00)
[2024-09-21] MEDS ORDERED: PREGABALIN 75 MG CAP PO SCH (21:00)
--- NOTE | 2024-09-21 23:04 | NUR ---
PT RESTING WITH HER CPAP ON AND EYES CLOSED. PT AWAKENS WHEN I ENTERED ROOM. PT HAS NO NEEDS OR CONCERNS AT THIS TIME. CALL LIGHT WITHIN REACH.
--- NOTE | 2024-09-22 00:20 | NUR ---
PT RESTING WITH EYES CLOSED, PULSE OX 91%, CPAP ON. CALL LIGHT WITHIN REACH.
[2024-09-22 01:16] VITALS: BP 112/60
--- NOTE | 2024-09-22 01:36 | NUR ---
PT UP TO BATHROOM WITH FWW. ADMINISTERED ANCEF AND DID VITALS. ON-Q INFUSING AT 4ML/HR. DRESSING CLEAN, DRY AND INTACT. FRESH ICE IN CRYO. PT BACK TO BED WITH [place] HOSE, HEEL PROTECTORS, SCDS, CRYO IN PLACE. PT HAS NO FURTHER NEEDS AT THIS TIME. CALL LIGHT WITHIN REACH.
--- NOTE | 2024-09-22 03:21 | NUR ---
PT RESTING WITH EYES CLOSED. PT HAS CPAP, SCDS, CRYO IN PLACE. PT'S LEFT KNEE IS FLAT IN BED, NO ELEVATION. PULSE OX 94%. CALL LIGHT IS WITH IN REACH.
[2024-09-22 05:26] VITALS: BP 116/61
--- NOTE | 2024-09-22 05:53 | NUR ---
PT UP TO BATHROOM WITH FWW. PT BACK TO BED, BESTS, A[place] DICKINSON, CRYO IN PLACE. FRESH ICE IN CRYO. ON-Q INFUSING AT 4ML/HR. DRESSING CLEAN, DRY AND INTACT. PT GIVEN MENU AND INSTRUCTIONS FOR BREAKFAST. PT HAS NO FURTHER NEEDS AT THIS TIME. CALL LIGHT WITH IN REACH.
--- NOTE | 2024-09-22 07:10 | NUR ---
VERBAL REPORT RECEIVED FROM LIZETTE CARRERO. PT IS AWAKE AND ALERT IN BED ON CELL PHONE, NO REQUESTS AT THIS TIME.
[2024-09-22] MEDS ORDERED: CELECOXIB 200 MG CAP PO SCH (08:00)
[2024-09-22] MEDS ORDERED: PREGABALIN150 MG PO (08:05)
--- NOTE | 2024-09-22 08:08 | NUR ---
MED REC COMPLETE
--- NOTE | 2024-09-22 08:50 | NUR ---
ALERT AND ORIENTED IN BED. STATES SHE LIVES IN MOBILE HOME WITH SPOUSE. STATES SHE HAS 6 STEPS TO GET INSIDE BUT IS WORKING ON GETTING A RAMP INSTALLED. HAS A ROLATOR AND A SHOWER CHAIR. DRIVES AT BASELINE. DENIES DIFFICULTY PAYING UTILTIES, FOR FOOD OR MEDICATIONS. CURRENTLY PLANNING TO DC TO HOME PENDING PT AND OT TODAY. NO KNOWN CM NEEDS AT THIS TIME.
[2024-09-22] MEDS ORDERED: PANTOPRAZOLE SODIUM 40 MG TABEC PO SCH (09:00)
--- NOTE | 2024-09-22 09:28 | NUR ---
UR CLINICAL REVIEW: 2 MN FOR [facility]- PER CONTACT OFFICER MEETS EXTENDED STAY CRITERIA DUE TO PAIN AND WEAKNESS MEDICARE EXTENDED STAY 09/21/24 @ 1644 ORDER MATCHES REG NO AUTH REQUIRED PER MEDICARE GUIDELINES DISCHARGE POSSIBLE TODAY PENDING PT ASSESSMENT 09/23/24
[2024-09-22 09:29] VITALS: BP 121/92
--- NOTE | 2024-09-22 10:13 | NUR ---
PATIENT IN BED AT THIS TIME. PHYSICAL THERAPY IN ROOM AT THIS TIME TO WORK WITH PATIENT. COMPUTER SYSTEMS SOFTWARE ENGINEER CHANGED PATIENTS LINENS. CALL LIGHT WITHIN REACH, NO FURTHER NEEDS AT THIS TIME.
--- NOTE | 2024-09-22 11:23 | NUR ---
VISITED DURING SPIRITUAL CARE ROUNDS. PT IN OVERALL GOOD SPIRITS, NO IMMEDIATE NEEDS. FITTINGS FINISHER PROVIDED SUPPORTIVE PRESENCE, HOSPITALITY, PRAYER, NORMALIZED EXPERIENCE. PT EXPRESSED GRATITUDE, MARTHA AND MAR[employer]A [employer] OF STRENGTH.
--- NOTE | 2024-09-22 11:46 | NUR ---
PATIENT IN CHAIR AT THIS TIME. THIS TITLE SUPERVISOR ASSISTED PATIENT TO BATHROOM ADN THEN BACK TO CHAIR. CALL LIGHT WITHIN REACH, NO FURTHERN NEEDS AT THIS TIME.
[2024-09-22] MEDS ORDERED: CEFUROXIME250 MG PO (12:00)
[2024-09-22] MEDS ORDERED: ASPIRIN325 MG PO (12:01)
[2024-09-22] MEDS ORDERED: ACETAMINOPHEN500 MG PO (12:02)
[2024-09-22] MEDS ORDERED: OXYCODONE HCL5 MG PO (12:02)
--- NOTE | 2024-09-22 12:17 | NUR ---
ADELA PHYSICIAN ROUGE SIFTER AND MILLER IN TO SEE PT AND ADMINISTER 15 ML OF 0.5% ROPIVACAINE FOR PAIN CONTROL FOR L) KNEE.
[2024-09-22 12:52] VITALS: BP 138/78
--- NOTE | 2024-09-22 12:55 | NUR ---
PATIENT GETTING READY FOR DISCHARGE. THIS PROGRAM SUPPORT ASSISTANT REMOVED PATIENTS IV CATHETER, REFILLED CRYO CUFF, AND GOT PATIENT DRESSED. NO FURTHER NEEDS.
--- NOTE | 2024-09-22 13:12 | NUR ---
DISCUSSED DISCHARGE INSTRUCTIONS WITH PT AND SPOUSE, BOTH VERBALIZE UNDERSTANDING. IV REMOVED, TIP INTACT, GAUZE AND COBAN DRESSING APPLIED TO SITE, PT TOLERATED WELL. PT DRESSES WITH ASSIST. EDUCATION ON USE OF IS AND CRYOCUF RECEIVED, PT VERBALIZES UNDERSTANDING. BELONGINGS GATHERED, CELL PHONE LETTER OF CREDIT CLERK, WHITE BAG, CPAP, AND JOURNAL GATHERED INTO SAH BAG. SPOUSE HAS RX. PT LEAVES UNIT VIA WHEELCHAIR WITH SAH BELONGINGS BAG ESCORTED BY NORA LONGORIA TO PRIVATE CAR.
--- NOTE | 2024-09-28 07:33 | OR ---
[facility] [address] [place], [place] [address] Signed DATE OF OPERATION: 09/21/2024 SURGEON: Catrachita Mcmahon MD PREOPERATIVE DIAGNOSIS: Degenerative joint disease left knee, severe. POSTOPERATIVE DIAGNOSIS: Degenerative joint disease left knee, severe. PROCEDURE PERFORMED: Left total knee arthroplasty with Spencer. HIGHWAY MAINTENANCE TECHNICIAN: Leydi Umana PA-C. ANESTHESIA: Spinal. BLOOD LOSS: 165 mL. TOURNIQUET TIME: Zero. IMPLANTS: Pepe Triathlon size 4, 10 mm polyethylene and 32 mm patella. BRIEF HISTORY: Corinna is a 69-year-old female with progressive worsening of osteoarthritis. She had undergone arthroscopy which confirmed significant lateral disease. Risks and benefits of operative treatment were discussed with her and she elected to proceed. DESCRIPTION OF PROCEDURE: Once consent was obtained, she was taken to the operating room. After adequate anesthesia, she was placed on the operating room table with a hip bump. Leg was then prepped and draped in a standard sterile fashion. The knee was approached through a standard anterior midline incision. This was carried through the skin and subcutaneous tissue and skin flaps were developed medially and laterally. The low midvastus arthrotomy was performed and the infrapatellar fat pad was excised. The MCL was Electronically Signed By: CATRACHITA MCMAHON MD 09/28/24 0733 PATIENT NAME: CORINNA HOGAN OPERATIVE REPORT DATE OF : 57 REPORT #: [id number] PHYSICIAN: CATRACHITA MCMAHON MD PCP: SHARITA MOORE PA-C REPORT IS CONFIDENTIAL AND NOT TO BE RELEASED WITHOUT AUTHORIZATION [facility] [address], [place] [address] Signed elevated as a sleeve around the posteromedial corner. Anterior horns of the menisci were transected as was the ACL. PCL was found to be intact. The navigation computer arrays were placed in the medial femoral condyle and proximal tibia. The leg was then registered with the computer followed by the fine anatomic points of the knee. The four ligamentous poses were then taken and slight adjustments were made to the prosthesis. The robot was then brought in, the 4 straight cuts were made along with the 2 angle cuts. Care was taken to protect the patellar tendon and MCL. The bony remnants were removed as were the remaining osteophytes. The posterior osteophytes removed off the femur, no release was performed. The trials were then positioned. Knee was taken from 0 to 125 degrees of flexion. She had good stability and the patella tracked well. The patella was then cut sized and drilled for a 32 patella. The distal femoral drill holes were completed and the proximal tibia was completed using the keel punch followed by the drill guide. The prosthesis was then obtained. The femur was then impacted until it was well seated. The knee was then extended and loaded. The patella was clamped into position until it was seated flush. Again, patellar tracking was checked, found to be good. The knee was irrigated using one bottle of Surgiphor followed by normal saline. The periarticular soft tissues were injected with 50 mL of 0.25% Marcaine and ropivacaine mixture. The On-Q pain pump was percutaneously placed into the adductor canal. The arthrotomy was then closed using a combination of #2 FiberWire, #2 Stratafix, subcutaneous tissue with 0 Stratafix and the skin with 3-0 Stratafix. Wound was sealed with LiquiBand and Steri-Strips and dressed with Acticoat-7 dressing, ABD, and Zhang wrap. She tolerated the procedure well. All sponge, needle, and instrument counts were correct. Catrachita Mcmahon MD BA/MODL /[id number] Copies: ~ Electronically Signed By: CATRACHITA MCMAHON MD 09/28/24 0733 PATIENT NAME: CORINNA HOGAN OPERATIVE REPORT DATE OF : 57 REPORT #: [id number] PHYSICIAN: CATRACHITA MCMAHON MD PCP: SHARITA MOORE PA-C REPORT IS CONFIDENTIAL AND NOT TO BE RELEASED WITHOUT AUTHORIZATION
== END 2024-09-22 13:12 | disposition home or self-care (01) ==
LOC: DS 06:55 → MS 16:50 → DS 09-22 13:12
PROVIDERS: ATTEND Specialist
PROC: 0SRD0JZ Replacement of Left Knee Joint with Synthetic Substitute, Open Approach (ICD-10-PCS; principal; 2024-09-21 09:15)
DX: M17.12 Unilateral primary osteoarthritis, left knee (principal); Z88.5 Allergy status to narcotic agent; Z88.8 Allergy status to other drugs, medicaments and biological substances; Z79.899 Other long term (current) drug therapy
CPT/HCPCS: 01402; 64447; 64454; 73560; 76942; 80053; 85025; 94762; 96374; 97110; 97116; 97161; 97530; A9270; C1713; C1776; J0690; J1100; J2003; J2250; J2405; J2704; J2795; J7121; J7999

== ENCOUNTER 2024-09-24 20:22 | Emergency (ER) | payer MEDICARE, OTHER ==
[~2024-09-24] VITALS: Ht 167.6 cm; Wt 104.0 kg
[~2024-09-24 20:22] MED LIST changes: +ACETAMINOPHEN500 MG PO; +ASPIRIN325 MG PO; +CEFUROXIME250 MG PO; -LACTATED RINGER'S 1,000 ML IV SCH; +MELATONINMAX10 MG PO; -Ropivacaine HCl 20 MG/10 ML AMP ONE
[2024-09-24 21:33] LABS: BLOOD/HGB, URINE NEGATIVE (Negative); KETONE, URINE NEGATIVE (Negative); LEUK ESTERASE, URINE NEGATIVE (negative); NITRITE, URINE NEGATIVE (negative)
[2024-09-24 21:34] LABS: BASOPHILS 0.3 % (0.1-1.2); EOSINOPHILS 2.8 % (0.7-5.8); LYMPHOCYTES 16.2 % (19.3-51.7); MCH 28.9 PG (25.6-32.2); MCHC 32.9 g/dL (32.2-35.5); MCV 87.6 fL (79.4-94.8); MONOCYTES 10.9 % (4.7-12.5); NEUTROPHILS 69.3 % (34.0-71.1); RBC 4.61 M/uL (3.93-5.22)
[2024-09-24 21:45] LABS: ALT (SGPT) 17.0 U/L (14-59); AST (SGOT) 18.0 U/L (15-37); GLOMERULAR FILTRATION RATE,EST 44.0 mL/min (>60); PROTEIN, TOTAL 7.6 g/dL (6.4-8.2); UREA NITROGEN 13.0 mg/dL (7-18)
[2024-09-24 21:48] LABS: INR 1.13 (0.80-1.30); PROTIME 13.8 Sec (11.2-14.2)
[2024-09-24 21:51] LABS: LACTIC ACID, BLOOD 2.1 mmol/L (0.4-2.0)
[2024-09-24] MEDS ORDERED: PREGABALIN 75 MG CAP PO ONE (22:15)
[2024-09-24] MEDS ORDERED: levETIRAcetam 500 MG TAB PO ONE (22:15)
[2024-09-24] MEDS ORDERED: LACTATED RINGER'S 1,000 ML IV ONE (22:15)
[2024-09-24] MEDS ORDERED: OXYCODONE HCL 5 MG TAB PO ONE (22:30)
[2024-09-24 23:33] LABS: LACTIC ACID, BLOOD 1.8 mmol/L (0.4-2.0)
[2024-09-25 00:31] VITALS: BP 125/65
== END 2024-09-25 00:32 | disposition home or self-care (01) ==
LOC: ED 20:22
PROVIDERS: Internal Medicine
DX: R50.82 Postprocedural fever (principal); J98.11 Atelectasis; K21.9 Gastro-esophageal reflux disease without esophagitis; E11.40 Type 2 diabetes mellitus with diabetic neuropathy, unspecified; Z79.84 Long term (current) use of oral hypoglycemic drugs; Z79.899 Other long term (current) drug therapy; Z79.82 Long term (current) use of aspirin; Z88.1 Allergy status to other antibiotic agents; Z91.048 Other nonmedicinal substance allergy status; Z88.5 Allergy status to narcotic agent; Z88.8 Allergy status to other drugs, medicaments and biological substances
CPT/HCPCS: 36415; 71045; 73560; 80053; 81003; 83605; 85025; 85610; 85730; 87040; 96365; 99283-25; A9270; J0696; J7121